=== PATIENT | male | born 1955 | race Caucasian/White ===

== ENCOUNTER 2017-04-30 09:18 | Emergency (ER) | payer OTHER ==
[2017-04-30 09:28] VITALS: TEMP 98.3; BMI 29.0
--- NOTE | 2017-04-30 09:40 | PDOC ---
Attending Attestation - Resident Resident Name: Louisa Gardner - ED Attending Attestation I have performed the following: I have examined & evaluated the patient, The case was reviewed & discussed with the resident, I agree w/resident's findings & plan, Exceptions are as noted - HPI HPI: 04/30/17 09:59 61 M with h/o HTN, HLD presents to ER with R knee pain x 4 days. 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 Afterwards, his right knee became very painful and swollen. He denies any falls or trauma to the knee. He states that this has happened many times before, but this is his first time seeing a doctor for it. Pt denies any F/C. Denies h/o gout/ pseudogout. Denies swelling or pain in any other joint. - Physicial Exam PE: 04/30/17 11:28 "GENERAL: Awake, alert, and fully oriented, in no acute distress HEAD: No signs of trauma EYES: PERRLA, EOMI, sclera anicteric, conjunctiva clear ENT: Auricles normal inspection, hearing grossly normal, nares patent, oropharynx clear without exudates. Moist mucosa NECK: Nontender, no stepoffs, Normal ROM, supple, no lymphadenopathy, JVD, or masses LUNGS: Breath sounds equal, clear to auscultation bilaterally. No wheezes, and no crackles HEART: Regular rate and rhythm, normal S1 and S2, no murmurs, rubs or gallops ABDOMEN: Soft, nontender, normoactive bowel sounds. No guarding, no rebound. No masses EXTREMITIES: R knee with effusion anterior to joint, as well as effusion posteriorly, full active and passive ROM, no erythema, no bony tenderness, no edema in lower leg NEUROLOGICAL: Cranial nerves II through XII intact. 5/5 strength and sensation in all extremities, Normal speech, normal gait SKIN: Warm, Dry, normal turgor, no rashes or lesions noted. " - Medical Decision Making 04/30/17 11:29 61 M with 4 days of atraumatic recurrent R knee swelling and pain. Likely bursitis in the context of kneeling during work 4 days ago. Pt with no infectious symptoms or signs of septic arthritis. Effusion appears to be anterior to joint space, more consistent with bursitis rather than joint effusion. Also consider ellison's cyst as pt has effusion posterior to knee as well. - XR - US to r/o DVT - Pain control - F/u orthopedics
[2017-04-30] MEDS ORDERED: LIDOCAINE HCL 2% (50ML VIAL) INF ONE (09:47)
[2017-04-30] MEDS ORDERED: KETOROLAC TROMETHAMINE 60 MG/2 ML VIAL IM ONE (09:58)
[2017-04-30] MEDS ORDERED: amLODIPine BESYLATE 10 MG TABLET (FP) PO ONE (09:58)
[2017-04-30] MEDS ORDERED: amLODIPine BESYLATE 5 MG TABLET (FP) ONE (10:00)
[2017-04-30] MEDS ORDERED: KETOROLAC TROMETHAMINE 60 MG/2 ML VIAL ONE (10:00)
--- NOTE | 2017-04-30 11:42 | PDOC ---
History of Present Illness - General Chief Complaint: Pain, Acute Stated Complaint: JOINT PAIN Time Seen by Provider: 04/30/17 09:30 - History of Present Illness Initial Comments: 61 year old male with PMH of HTN and HLD presenting with right knee pain after an extended period of kneeling on that knee a few days prior. 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 He stood up with only some minor pain in his right knee but noticed worsening swelling throughout the past two days. He took two Advil the day before admission and noticed reduction in swelling and improvement in both movement and pain. denies any direct trauma to the knee, recent sickness, or insect bites. Denies skin breakage or warmth of his joints. 04/30/17 10:44 Past History - Past Medical History Allergies/Adverse Reactions: Allergies Allergy/AdvReac Type Severity Reaction Status Date / Time No Known Drug Allergies Allergy Verified 12/30/14 10:29 Home Medications: Ambulatory Orders Simvastatin 40 mg PO DAILY 02/19/12 Amlodipine Besylate [Norvasc -] 10 mg PO DAILY #30 tab 04/30/17 Naproxen Sodium 550 mg PO BID PRN #14 tablet 04/30/17 Anemia: No Asthma: No Cancer: No Cardiac Disorders: No CVA: No COPD: No CHF: No Dementia: No Diabetes: No GI Disorders: No Disorders: Yes (HYDROCELE, RIGHT) HTN: Yes Hypercholesterolemia: Yes Liver Disease: No Seizures: No Thyroid Disease: No - Suicide/Smoking/Psychosocial Hx Smoking History: Never smoked Have you smoked in the past 12 months: No Hx Alcohol Use: Yes (WINE SOCIALLY) Substance Use Type: None Hx Substance Use Treatment: No Review of Systems - Review of Systems Constitutional: No: Chills, Diaphoresis, Fever HEENTM: No: Blurred Vision Respiratory: No: Cough, Shortness of Breath, Wheezing Cardiac (ROS): No: Chest Pain, Edema ABD/GI: No: Constipated, Diarrhea, Nausea, Poor Appetite, Vomiting Musculoskeletal: Yes: Joint Swelling, Joint Stiffness Integumentary: No: Bruising, Change in Color Neurological: No: Headache, Numbness *Physical Exam - Vital Signs Last Vital Signs Temp Pulse Resp BP Pulse Ox 98.3 F 88 20 168/95 99 04/30/17 09:25 04/30/17 09:25 04/30/17 09:25 04/30/17 10:15 04/30/17 09:25 - Physical Exam General Appearance: Yes: Nourished, Appropriately Dressed. No: Apparent Distress HEENT: positive: EOMI, JELANI, Normal Voice Neck: positive: Trachea midline, Normal Thyroid, Supple. negative: Tender, Rigid Respiratory/Chest: positive: Lungs Clear, Normal Breath Sounds. negative: Chest Tender, Respiratory Distress Cardiovascular: positive: Regular Rhythm, Regular Rate, S1, S2. negative: Murmur Gastrointestinal/Abdominal: positive: Normal Bowel Sounds, Flat, Soft. negative : Tender Musculoskeletal: positive: Decreased Range of Motion. negative: Normal Inspection (Swollen right knee with palpable fluid in politeal fossa. ROM decreased in Right kneee with extension only to 170 degress and flexon to 95 degrees.) Integumentary: positive: Normal Color, Dry, Warm Neurologic: positive: Fully Oriented, Alert, Normal Mood/Affect ED Treatment Course - RADIOLOGY Radiology Studies Ordered: Category Date Time Status KNEE 3 POS-RIGHT [RAD] Stat Radiology 04/30/17 09:44 Ordered - Medications Given in the ED: ED Medications Discontinued Medications Generic Name Dose Route Start Last Admin Trade Name Freq PRN Reason Stop Dose Admin Amlodipine Besylate 10 mg 04/30/17 09:58 04/30/17 10:08 Norvasc - PO 04/30/17 09:59 10 mg ONCE ONE Administration Ketorolac Tromethamine 60 mg 04/30/17 09:58 04/30/17 10:08 Toradol Injection - IM 04/30/17 09:59 60 mg ONCE ONE Administration Medical Decision Making - Medical Decision Making 04/30/17 11:44 Knee X ray and Ultrasound demonstrating extra-articular swelling effusion most likely in the osmin-patellar bursae. Likely pre-patellar bursitis given the location of the swelling and mechanism of action. Not likely septic joint as the fluid is extra-articular and not warm or evidencing abrasion. Pain and swelling improved with 60 IM Toradol. Will C patient home with ortho follow up. *DC/Admit/Observation/Transfer Diagnosis at time of Disposition: Effusion of bursa of right knee Knee pain, acute Qualifiers: Laterality: right Qualified Code(s): M25.561 - Pain in right knee - Discharge Dispostion Disposition: HOME Condition at time of disposition: Improved Admit: No - Prescriptions Prescriptions: Naproxen Sodium 550 mg PO BID PRN #14 tablet PRN Reason: Pain Level 6-10 Amlodipine Besylate [Norvasc -] 10 mg PO DAILY #30 tab - Referrals Referrals: Mason Guajardo MD [Primary Care Provider] - Colin Bass MD [Staff Physician] - - Patient Instructions Printed Discharge Instructions: DI for Bursitis Additional Instructions: Please take your naproxen up to two times per day. Please follow up with the orthopedic surgeon for your knee pain. If you experience worsening pain, swelling, redness, fevers, or any other concerning symptoms, return to the ER immediately. - Post Discharge Activity Forms/Work/School Notes: Back to Work
[2017-04-30 12:31] VITALS: BP 151/89; PULSE 67
== END 2017-04-30 12:32 | disposition home or self-care (01) ==
LOC: JER 09:18
PROC: 3E0233Z Introduction of Anti-inflammatory into Muscle, Percutaneous Approach (ICD-10-PCS; principal; 2017-04-30)
DX: M25.461 Effusion, right knee (principal); I10 Essential (primary) hypertension; E78.00 Pure hypercholesterolemia, unspecified
CPT/HCPCS: 73562-TC-RT; 93971-TC; 99282-25